=== PATIENT | male | born 1935 | race Caucasian/White ===

== ENCOUNTER 2022-06-12 08:00 | Outpatient (CLI) | payer MEDICARE, OTHER, SELFPAY ==
[2022-06-12 22:02] LABS: Chloride* 102 mmol/L (96-114); Potassium* 5.1 mmol/L (3.6-5.1); Sodium* 136 mmol/L (135-149)
[2022-06-12 22:05] LABS: Carbon Dioxide* 24 mmol/L (20-32); Creatinine* 0.7 mg/dL (0.5-1.5); Estimated Glomerular Filt Rate 90 ml/min
[2022-06-12 22:06] LABS: Blood Urea Nitrogen* 15 mg/dL (7-30); Calcium* 9.1 mg/dL (8.4-10.6); Glucose* 80 mg/dL (60-115)
[2022-06-12 22:14] LABS: NT Pro B Type NatriureticPept* 2680 PG/mL (0-450)
== END 2022-06-12 08:01 | disposition home or self-care (01) ==
PROVIDERS: PCP Family Medicine; Visit Provider Family Medicine
DX: I10 Essential (primary) hypertension (principal); I25.9 Chronic ischemic heart disease, unspecified; I48.91 Unspecified atrial fibrillation; Z95.1 Presence of aortocoronary bypass graft; Z79.899 Other long term (current) drug therapy; I25.10 Atherosclerotic heart disease of native coronary artery without angina pectoris
CPT/HCPCS: 80048; 83880

== ENCOUNTER 2022-07-10 09:18 | Outpatient (CLI) | payer MEDICARE, OTHER, SELFPAY ==
[2022-07-10 22:23] LABS: NT Pro B Type NatriureticPept* 1590 PG/mL (0-450)
== END 2022-07-10 09:19 | disposition home or self-care (01) ==
LOC: FRMREF 10:53
PROVIDERS: PCP Family Medicine; Visit Provider Family Medicine
DX: I25.10 Atherosclerotic heart disease of native coronary artery without angina pectoris (principal); I25.9 Chronic ischemic heart disease, unspecified; Z95.1 Presence of aortocoronary bypass graft
CPT/HCPCS: 83880

== ENCOUNTER 2023-02-25 15:14 | Outpatient (CLI) | payer MEDICARE, OTHER, SELFPAY ==
[2023-02-27 19:50] LABS: Urine Osmolality 824 mOsm/kg (50-800)
== END 2023-02-25 15:15 | disposition home or self-care (01) ==
PROVIDERS: PCP Family Medicine; Visit Provider Internal Medicine Nephrology
DX: Z00.00 Encounter for general adult medical examination without abnormal findings (principal); D64.9 Anemia, unspecified; E78.5 Hyperlipidemia, unspecified; E87.1 Hypo-osmolality and hyponatremia; I10 Essential (primary) hypertension; I25.10 Atherosclerotic heart disease of native coronary artery without angina pectoris; I25.9 Chronic ischemic heart disease, unspecified; I48.91 Unspecified atrial fibrillation
CPT/HCPCS: 80069; 82533; 83880; 83930; 83935; 84165; 84300; 84443; 84450; 84460

== ENCOUNTER 2023-05-11 08:55 | Outpatient (CLI) | payer MEDICARE, OTHER, SELFPAY ==
--- NOTE | 2023-06-30 14:10 | ONC.NURNOTE ---
Addendum entered by Sofía An RN 07/09/23 14:31: Discussed patient with PCP and would like for section chief to look at bone scan. Nothing abnormal seen by section chief, no need to be seen by us. [facility] message with [facility]. Original Note: Patient referral sent for hematology on 06/25/2023. Cafeteria Manager requested the following information be sent in order to review with section chief and possibly schedule. -Patient been seen by hematology in past? -EMR note from 05/11 does not corollate with referral, was patient seen outside? -Need MRI that was mentioned in the PET scan. 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 Left message again today to request information from test specialist.
== END 2023-05-11 08:56 | disposition home or self-care (01) ==
PROVIDERS: PCP Family Medicine; Visit Provider Family Medicine
DX: R05.9 Cough, unspecified (principal); R50.9 Fever, unspecified
CPT/HCPCS: 80053; 86769

== ENCOUNTER 2023-06-11 10:13 | Outpatient (CLI) | payer MEDICARE, OTHER, SELFPAY ==
--- NOTE | 2023-06-11 10:30 | CRLHL7_ITS ---
For Patients: As a result of the Century Cures Act, medical imaging exams and procedure reports are released immediately into your electronic medical record. You may view this report before your referring provider. If you have questions, please contact your health care provider. INDICATION: Incidental findings of marrow changes on an MRI of the shoulder not otherwise specified. TECHNIQUE: 25.6 mCi Tc-99m labeled MDP administered. Delayed whole body images obtained with the patient at rest. Spot images were obtained of the shoulders. COMPARISON: Correlation is made with a two-view chest x-ray May 11, 2023 and September 23, 2022. FINDINGS: There is good uptake of activity by the skeleton. There is asymmetric uptake about the right shoulder particularly the distal clavicle, superior lateral humeral head, and probably the scapula on the anterior view. All this could reflect degenerative or posttraumatic type activity. The clinical history provided would make exclusion of other processes challenging. Clinical laboratory correlation will be required. There is mild degenerative-type uptake within the sternoclavicular joints, lower lumbar spine, hips, and knees. Focal activity upper sternum likely related to prior sternotomy. Skin contamination along the scrotum. The kidneys are present without obstruction. IMPRESSION: 1. Asymmetric uptake about the right shoulder relative to the left nonspecific possibly degenerative or posttraumatic in nature. Please correlate with the reported recent MRI (no report and no images available), as well as any pertinent clinical and laboratory correlation. 2. Scattered axial and appendicular degenerative-type activity. 3. Focal uptake in the upper sternum is likely related to the known sternotomy. Dictated by Lenny Hammer MD @ 06/11/2023 4:14:15 PM (Electronically Signed)
== END 2023-06-11 10:14 | disposition home or self-care (01) ==
LOC: NM 10:15
PROVIDERS: PCP Family Medicine; Visit Provider Family Medicine
DX: D75.9 Disease of blood and blood-forming organs, unspecified (principal)
CPT/HCPCS: 78306; A9503

== ENCOUNTER 2023-07-27 10:23 | Outpatient (CLI) | payer MEDICARE, OTHER, SELFPAY | END 2023-07-27 10:24 | disposition home or self-care (01) | PROVIDERS: PCP Family Medicine; Visit Provider Family Medicine | DX: E78.5 Hyperlipidemia, unspecified (principal); I10 Essential (primary) hypertension; E87.1 Hypo-osmolality and hyponatremia; R73.03 Prediabetes; D64.9 Anemia, unspecified | CPT/HCPCS: 80048; 80061; 83735 ==

== ENCOUNTER 2023-09-09 13:20 | Outpatient (CLI) | payer MEDICARE, OTHER, SELFPAY ==
[2023-09-09 21:54] LABS: Vitamin D 25 Hydroxy* 46 ng/mL (30-80)
[2023-09-09 22:29] LABS: Vitamin B12* 289 pg/mL (243-894)
== END 2023-09-09 13:21 | disposition home or self-care (01) ==
PROVIDERS: PCP Family Medicine; Visit Provider Family Medicine
DX: D64.9 Anemia, unspecified (principal); R53.83 Other fatigue; E55.9 Vitamin D deficiency, unspecified
CPT/HCPCS: 80053; 82306; 82607; 84443

== ENCOUNTER 2023-09-11 11:00 | Outpatient (RCR) | payer MEDICARE, OTHER, SELFPAY ==
--- NOTE | 2023-07-31 14:06 | PT.OPE ---
PT [facility] PT [facility] Out[facility] Eval Start: 07/31/23 14:03 Freq: Status: Active Protocol: Document 07/31/23 14:03 KYLER (Rec: 07/31/23 14:05 KYLER [id number]) E-signed By MARYBETH OmerT, MS Physical Therapy Outpatient Evaluation Insurance Information Recert Due Date 10/29/23 Insurance Name Medicare B Medical Diagnosis Pain in right shoulder Treating Diagnosis R shoulder pain, decreased R shoulder active and passive ROM, decreased R UE flexibility, and R UE weakness . Subjective Subjective Patient is an 87 y.o. male who presents to PT with c/o R shoulder upon waking 3-4 months ago. Denies any injury or performing activities the day prior that would have caused R shoulder pain. Has avoided lifting and any activities that cause elevated sxs which has been difficult since he is R handed. Describes sxs as a sharp ache with lifting and reaching in his lateral shoulder along his deltoid. No pain at rest. Cortisone injection 6 weeks ago provided relief for several days. Sxs improving with Bengay cream and Tyelnol decreasing pain levels. 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 PMH includes controlled HTN and LS pain. AGGR factors: AROM, lifting, reaching in all directions away from his body, sleeping on R. ALLEV factors: rest, ice , bengay and Tylenol. Pt arrived 12 min late due to accidentally going to our [facility] clinic. Pain Comments 4-01/17 Current Work Status Retired Occupation Retired financial reporting accountant Preferred Name Ed Precautions Therapy Limitations/Systems Review Not Limited Objective Functional Test Performed & Score Quick DASH: 68% Assessment Assessment/Impression Pt displays R shoulder pain, decreased R shoulder active and passive ROM, decreased R UE flexibility, and R UE weakness. + R RC impingement testing with no signs or symptoms of a full tear with tenderness at his R posterior cuff and SS insertions. Good response to pulleys and strengthening exercises with fatigue and improved AROM following. Significant weakness with shoulder ER. Pt able to perform full wall slide flex AAROM despite very limited flex AROM. Good response to AAROM, stretching and strengthening exercises with decreased pain levels and improved AROM following. Patient would benefit from skilled PT for pain/sx management, return to R shoulder AROM WFL pain free, improved R shoulder strength/ stability, and establishment of HEP. Primary Functional Limitations AROM, lifting, reaching in all directions away from his body , sleeping on R. Plan of Care Rehabilitation Potential Good Rehabilitation Potential Comments Good due to pt?s age and degenerative R shoulder changes. Physical Therapy Goals Short-term goals to be completed in 4 weeks: 1. Pt will report improved quality of sleep not waking for >2 consecutive days due to R shoulder pain. 2. Pt will display >25% improvement in functional R shoulder IR AROM to perform dressing activities. Long-term goals to be completed in 10 weeks: 1. Pt will be independent and compliant with his HEP 2. Pt will display improved R shoulder flex, ABD and ER strength >4/5 to improve lesley to lifting and work activities . 3. Pt will display improved R shoulder flex and ABD AROM > 165 deg without pain to perform reach into overhead cabinets and to perform personal dressing/grooming activities. 4. Pt will report >50% improvement in quick DASH questionnaire to significantly improve lesley to functional daily activities. Coordination/Communication With Referral Source Treatment Plan/Direct Interventions Joint Mobilization,Manual Therapy,Therapeutic Exercises Frequency/Duration 1x per week for 6-10 visits Patient Will Be Discharged From Therapy Completion of LTG(s),Skills Plateau,Independent w/HEP, Independently Progressing Evaluation Billing Untimed Code Treatment Minutes 25 Complexity Moderate Certification Information Initial Certification Date 07/31/23 Ending Certification Date 10/29/23 Provider Signature Shows Agreement With POC & Medical Necessity Physician Signature & Date Requested Please Sign/Date Here Physician Comment/Change : Physician NPI Number #
== END 2023-12-17 13:37 | disposition home or self-care (01) ==
PROVIDERS: PCP Family Medicine; Visit Provider Family Medicine
DX: M25.511 Pain in right shoulder (principal); R29.898 Other symptoms and signs involving the musculoskeletal system; Z74.09 Other reduced mobility; Z51.89 Encounter for other specified aftercare
CPT/HCPCS: 97110; 97140; 97162

== ENCOUNTER 2024-04-15 09:55 | Outpatient (CLI) | payer MEDICARE, OTHER, SELFPAY | END 2024-04-15 09:56 | disposition home or self-care (01) | LOC: RAD 09:55 | PROVIDERS: PCP Family Medicine; Visit Provider Family Medicine | DX: R01.1 Cardiac murmur, unspecified (principal); I51.7 Cardiomegaly; I34.0 Nonrheumatic mitral (valve) insufficiency; I07.1 Rheumatic tricuspid insufficiency; R60.0 Localized edema | CPT/HCPCS: 93306 ==

== ENCOUNTER 2024-08-23 10:32 | Outpatient (CLI) | payer MEDICARE, OTHER, SELFPAY | END 2024-08-23 10:33 | disposition home or self-care (01) | PROVIDERS: PCP Family Medicine; Visit Provider Family Medicine | DX: E87.1 Hypo-osmolality and hyponatremia (principal); I10 Essential (primary) hypertension; R73.03 Prediabetes; D64.9 Anemia, unspecified; I25.9 Chronic ischemic heart disease, unspecified; R06.00 Dyspnea, unspecified; R60.0 Localized edema | CPT/HCPCS: 80053; 82043; 82570; 83880 ==